=== PATIENT | female | born 1995 ===

== ENCOUNTER 2017-02-08 08:39 | Emergency (ER) | payer OTHER ==
--- NOTE | 2017-02-08 08:57 | UC ---
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" usually self treats with 2 doses of prednisone and she is better---she took the Prednisone night and Thursday with out relief - History of Current Complaint Chief Complaint: UCRespiratory Stated Complaint: SORE THROAT Time Seen by Provider: 02/08/17 08:54 Hx Obtained From: Patient Hx Last Menstrual Period: 01/11 ?: No Onset/Duration: Sudden Onset, Lasting Days - 3 Severity: Moderate Pain Intensity: 7 Pain Scale Used: 0-10 Numeric Associated Signs & Symptoms: Positive: Fever - Allergies/Home Medications Allergies/Adverse Reactions: Allergies Allergy/AdvReac Type Severity Reaction Status Date / Time No Known Allergies Allergy Verified 02/08/17 08:40 PMH/Surg Hx/FS Hx/Imm Hx Previously Healthy: No - "autoimmune disorder" - Surgical History Surgical History: None - Family History Known Family History: Positive: Respiratory Disease - Social History Occupation: Student Lives: Dormitory/Roommates Alcohol Use: Occasionally Substance Use Type: None Smoking Status (MU): Never Smoked Tobacco Review of Systems Constitutional: Fever, Fatigue Skin: Negative Eyes: Negative ENT: Sore Throat Respiratory: Negative Cardiovascular: Negative Gastrointestinal: Negative Genitourinary: Negative Motor: Negative Neurovascular: Negative Musculoskeletal: Negative Neurological: Headache Psychological: Negative Is Patient Immunocompromised?: No All Other Systems Reviewed And Are Negative: Yes Physical Exam Triage Information Reviewed: Yes Appearance: Well-Nourished, Ill-Appearing, Pain Distress Vital Signs: Initial Vital Signs Temp 100.8 F 02/08/17 08:45 Pulse 98 02/08/17 08:45 Resp 20 02/08/17 08:45 BP 98/57 02/08/17 08:45 Pulse Ox 99 02/08/17 08:45 Vital Signs Reviewed: Yes Eye Exam: Normal Eyes: Positive: Conjunctiva Clear ENT Exam: Normal ENT: Positive: Normal ENT inspection, Hearing grossly normal, Pharyngeal erythema, TMs normal, Tonsillar swelling, Tonsillar exudate, Muffled/hoarse voice. Negative: Nasal congestion, Nasal drainage, Trismus Dental Exam: Normal Neck exam: Normal Neck: Positive: Supple, Nontender, No Lymphadenopathy Respiratory Exam: Normal Respiratory: Positive: Chest non-tender, Lungs clear, Normal breath sounds, No respiratory distress, No accessory muscle use Cardiovascular Exam: Normal Cardiovascular: Positive: RRR, No Murmur, Pulses Normal, Brisk Capillary Refill Musculoskeletal Exam: Normal Musculoskeletal: Positive: Strength Intact, ROM Intact, No Edema Neurological Exam: Normal Neurological: Positive: Alert, Muscle Tone Normal Psychological Exam: Normal Skin Exam: Normal Diagnostics - Laboratory Diagnostic Studies Completed/Ordered: RST (-) Re-Evaluation - Re-Evaluation First Eval Change: Improved - managing secretions well, upset about feeling badly--will give toradol -- Throat Pain/Nasal Course/Dx - Course Assessment/Plan: prednisone tonight, rest increase fluids - Differential Dx/Diagnosis Provider Diagnoses: Febrile, pharyngitis Discharge - Discharge Plan Condition: Stable Disposition: HOME Prescriptions: Amoxicillin/Clavulanate TAB* [Augmentin TAB 875*] 875 mg PO BID #20 tab predniSONE TAB* [Deltasone TAB*] 20 mg PO DAILY #3 tab Patient Education Materials: Pharyngitis (ED), Fever in Adults (ED) Referrals: [facility] [Outside] - 2 Days
[2017-02-08] MEDS ORDERED: NS 0.9% 1000 ML* 1,000 ML IV ONE (09:08)
[2017-02-08] MEDS ORDERED: predniSONE TAB* 20 MG PO ONE ×2 (09:09→10:08)
[2017-02-08] MEDS ORDERED: Ketorolac INJ* 30 MG/ML 1 ML VIAL IV PUSH ONE (10:17)
[2017-02-08 10:44] VITALS: BP 121/77
[2017-02-08 15:08] LABS: Hematocrit 34 % (35-47); Hemoglobin 11.6 g/dl (12.0-16.0); Mean Corpuscular HGB Conc 35 g/dl (31-36); Mean Corpuscular Hemoglobin 30 pg (27-31); Mean Corpuscular Volume 87 fL (80-97); Mean Platelet Volume 9 um3 (7.4-10.4); Red Blood Count 3.88 10^6/ul (4.0-5.4); Red Cell Distribution Width 13 % (10.5-15); White Blood Count 6.1 10^3/ul (3.5-10.8)
[2017-02-08 15:39] LABS: Mono Internal Control QC Line Present
[2017-02-08 15:40] LABS: Manual Entry Verification MER0007
--- NOTE | 2017-02-09 08:02 | UC ---
Progress - Progress Note Progress Note: NOTIFY PT SHE HAS MILD ANEMIA FOLLOW HER MD Re-Evaluation - Re-Evaluation First Eval Change: Improved - managing secretions well, upset about feeling badly--will give toradol --
== END 2017-02-08 10:50 | disposition home or self-care (01) ==
LOC: UCEAST 08:39
DX: J02.9 Acute pharyngitis, unspecified (principal); D64.9 Anemia, unspecified; D89.89 Other specified disorders involving the immune mechanism, not elsewhere classified
CPT/HCPCS: 36415; 85025; 86308; 87651; 96360; 96374; 99212; G0463; J1885; J7512